=== PATIENT | male | born 1975 | race Caucasian/White ===

== ENCOUNTER → 2016-06-13 | Outpatient (CLI) | payer BC, OTHER ==
[~2016-06-13] MED LIST: CIAL5TAB PO; DARV100T; DARV65CA; FLEX10TA2 PO; IBUP80TA PO; LYRI300C OR; NABU750T; NEXI20CA PO; SILD1TAB8 PO; SOMA350T; SOMA350T OR; SOMA350T PO; TPS CREAM TOP; TRAM50TA2 OR; XANA0.5T OR; ZANA4CAP OR
--- NOTE | 2016-06-14 02:30 | REP ---
Clinical: Epigastric pain. Technique: Supine views of the abdomen and pelvis. Findings: Bowel gas pattern is nonspecific and without evidence for obstruction or perforation. No organomegaly. No abnormal calcifications. Phleboliths suggested in the pelvis. Skeletal structures are intact. Impression: Nonspecific abdominal radiograph. Signed by Wally Garsia MD 06/14/2016 02:21 A
== END ==
LOC: M WUC 18:57
PROVIDERS: ATTEND Physician Assistant
DX: I87.8 Other specified disorders of veins (principal)

== ENCOUNTER → 2016-08-02 | Outpatient (CLI) | payer BC, OTHER ==
[~2016-08-02] VITALS: Ht 170.2 cm; Wt 88.5 kg
[~2016-08-02] MED LIST changes: +CYCL10TA PO; +IBUP600T26 PO; +LIDOCAINE 2% INJ 100 MG/5 ML SDV (FOR ANES.) As Ordered ONE; +LYRI300C PO; +NIFE10CA2 PO; +NS 1,000 ML IV SCH; +PROPOFOL 200 MG/20 ML VIAL As Ordered ONE; +TRAM1CAP15 PO; +ZANT1TAB PO; +medical marijuana
--- NOTE | 2016-08-02 13:10 | ROOR ---
Patient Name: Torres Cerrato Procedure Date: 08/02/2016 12:52 PM Date of : 1975 Age: 40 Room: [facility] Gender: Male Note Status: Finalized Procedure: Upper GI endoscopy Indications: For therapy of esophageal reflux Providers: Billy Orellana Jr, MD Referring MD: Sameer Ramirez. Requesting Provider: Medicines: Propofol per Anesthesia Complications: No immediate complications. Procedure: Pre-Anesthesia Assessment: - Prior to the procedure, a History and Physical was performed, and patient medications and allergies were reviewed. The patient is competent. The risks and benefits of the procedure and the sedation options and risks were discussed with the patient. All questions were answered and informed consent was obtained. Patient identification and proposed procedure were verified by the physician and the nurse in the pre-procedure area and in the procedure room. Mental Status Examination: alert and oriented. Airway Examination: normal oropharyngeal airway and neck mobility. Respiratory Examination: clear to auscultation. CV Examination: normal. ASA Grade Assessment: II - A patient with mild systemic disease. After reviewing the risks and benefits, the patient was deemed in satisfactory condition to undergo the procedure. The anesthesia plan was to use moderate sedation / analgesia (conscious sedation). Immediately prior to administration of medications, the patient was re-assessed for adequacy to receive sedatives. The heart rate, respiratory rate, oxygen saturations, blood pressure, adequacy of pulmonary ventilation, and response to care were monitored throughout the procedure. The physical status of the patient was re-assessed after the procedure. The Endoscope was introduced through the mouth, and advanced to the second part of duodenum. The upper GI endoscopy was accomplished without difficulty. The patient tolerated the procedure well. Findings: The upper third of the esophagus, middle third of the esophagus and lower third of the esophagus were normal. Non-severe esophagitis was found at the gastroesophageal junction. The cardia, gastric fundus and gastric body were normal. Patchy moderate inflammation characterized by congestion (edema), erosions, erythema, friability and granularity was found in the gastric antrum and in the prepyloric region of the stomach. Biopsies were taken with a cold forceps for histology. The first portion of the duodenum and second portion of the duodenum were normal. Patchy mildly erythematous mucosa was found in the duodenal bulb. Impression: - Normal upper third of esophagus, middle third of esophagus and lower third of esophagus. - Non-severe reflux esophagitis. - Normal cardia, gastric fundus and gastric body. - Gastritis. Biopsied. - Normal first portion of the duodenum and second portion of the duodenum. - Erythematous duodenopathy. Recommendation: - Discharge patient to home (ambulatory). - Return to my office in 2 weeks. Billy Orellana MD Billy Orellana Jr, MD 08/02/2016 1:10:17 PM This report has been signed electronically. Number of Addenda: 0 Note Initiated On: 08/02/2016 12:52 PM Estimated Blood Loss: Estimated blood loss: none.
[2016-08-02 13:45] VITALS: BP 143/91
== END | disposition home or self-care (01) ==
LOC: M OPP 11:51
PROVIDERS: ATTEND Surgery
DX: K21.9 Gastro-esophageal reflux disease without esophagitis (principal); K29.70 Gastritis, unspecified, without bleeding; K31.89 Other diseases of stomach and duodenum; R10.13 Epigastric pain; I10 Essential (primary) hypertension; D56.1 Beta thalassemia; I73.00 Raynaud's syndrome without gangrene; M19.90 Unspecified osteoarthritis, unspecified site; F41.9 Anxiety disorder, unspecified; G62.9 Polyneuropathy, unspecified; R06.83 Snoring; F17.210 Nicotine dependence, cigarettes, uncomplicated; Z88.2 Allergy status to sulfonamides; Z88.8 Allergy status to other drugs, medicaments and biological substances

== ENCOUNTER → 2016-11-16 | Outpatient (CLI) | payer BC, OTHER ==
[~2016-11-16] MED LIST changes: +IBUP-1022 PO; -IBUP600T26 PO; -LIDOCAINE 2% INJ 100 MG/5 ML SDV (FOR ANES.) As Ordered ONE; -NS 1,000 ML IV SCH; -PROPOFOL 200 MG/20 ML VIAL As Ordered ONE
--- NOTE | 2016-12-14 01:00 | ECWPNPC ---
PATIENT NAME: NEERAJ PARKER : 1975 GENDER: MALE VISIT DATE: 11/16/2016 DISCHARGE DATE: 11/16/16 1217 VISIT LOCKED DATE TIME: PHYSICIAN: BART CRAMER RESOURCE: BART CRAMER HISTORY OF PRESENT ILLNESS HISTORY OF PRESENT ILLNESS: PAIN THE PATIENT DESCRIBES THE PAIN... FALL RISK SCREENING: SCREENING :NO FALLS IN THE PAST YEAR TODAY'S VISIT: NOTES: RATES PAIN TODAY 7/10. IS HAVING NUMBNESS OVER BOTH HANDS AND FEELS IF STRENGTH IS NOT THERE. HAS HAD REPEAT SURGERY TO LEFT CT, WAS OFFERED SURG TO LEFT ULNA BUT THIS IS ON HOLD. MEDICAL MARIJUANA WAS HELPFUL BUT NOT ALLOWED THROUGH WORK. . CURRENT MEDICATIONS TAKING CYCLOBENZAPRINE HCL 10 MG TABLET 1 TABLET ORALLY THREE TIMES A DAY TAKING NIFEDIPINE 10 MG CAPSULE 1 CAPSULE ORALLY BID TAKING LYRICA 300 MG CAPSULE 1 CAPSULE ORALLY Q 8 HRS MDD=3 TAKING IBUPROFEN 800 MG TABLET 1 TABLET ORALLY THREE TIMES A DAY TAKING TRAMADOL HCL 50 MG TABLET DIRECTED ORALLY 1-2TABS Q 4 HRS PRN PAIN MDD=5 NOT-TAKING SOMA 350 MG TABLET 1 TABLET ORALLY BID NOT-TAKING PREDNISONE 10 MG TABLET 1 TABLET ORALLY TAKE 5 TABX 5 DAY, 4 TAB X 5 DAY, 3 TABX 5 DAY, 2 TABX 5 DAYS, 1 TAB X 5 DAY MEDICATION LIST REVIEWED AND RECONCILED WITH THE PATIENT PAST MEDICAL HISTORY RAYNOLDS PSORIASIS ALLERGIES SULFA (FOR ALLERGY USE ONLY): DYSPNEA: ALLERGY REVIEW OF SYSTEMS FOLLOW-UP ROS: GI/ HAD ENDOSCOPY - FOUND GASTRITIS AND INFLAMMATORY BOWEL. . PULMONOLOGY: SHORTNESS OF BREATH AFTER EATING. . REVIEWED BY: PROVIDER: BART CRAMER DENTAL PROFESSIONAL . CONSTITUTIONAL: ANY CHANGE IN YOUR MEDICAL CONDITION? NO . CHILLS NO . FEVER NO . INFECTION: DO YOU HAVE NEW INFECTIONS? NO . DO YOU HAVE HISTORY OF MRSA? NO . MUSCULOSKELETAL: ANY NEW PATTERNS OF PAIN OR NUMBNESS? NO . GASTROENTEROLOGY: ANY NEW CHANGE IN BOWEL CONTROL? NO . GENITOURINARY: ANY NEW CHANGE IN BLADDER CONTROL? NO . IS THERE A CHANCE YOU COULD BE ? NO . HEMATOLOGY/LYMPH: DO YOU TAKE ANY BLOOD THINNERS? (FOR EXAMPLE- COUMADIN, PLAVIX, AGGRENOX, PLATEL, PRADAXA, OR XARELTO) NO . WHEN WAS YOUR LAST DOSE? DATE: TIME: . NEUROLOGY: HAVE YOU FALLEN IN THE PAST 6 MONTHS? NO . ANY NEW EXTREMITY NUMBNESS OR WEAKNESS? NO . CARDIOLOGY: DO YOU HAVE A PACEMAKER OR DEFIBRILLATOR? NO . RESPIRATORY: HAVE YOU BEEN SICK IN THE PAST WEEK? NO . FEVER NO . FLU LIKE SYMPTOMS? NO . COUGH NO . INTEGUMENTARY: DO YOU HAVE ANY RASHES OR OPEN SORES? NO . ALLERGIC/IMMUNO: ARE YOU ALLERGIC TO SHELLFISH OR IV DYE? NO . ANY NEW ALLERGIES? NO . PSYCHIATRIC: DO YOU HAVE THOUGHTS OF HURTING YOURSELF OR SOMEONE ELSE? NO . ARE YOU ABUSED, NEGLECTED, OR IN AN UNSAFE ENVIRONMENT? NO . ENDOCRINOLOGY: ARE YOU DIABETIC? NO . OTHER: DO YOU NEED ANY PRESCRIPTIONS? YES . IF YES, PLEASE LIST: ____ . ANY NEW PROBLEMS WITH YOUR MEDICATIONS? NO . WHEN DID YOU LAST EAT? ____ . WHEN DID YOU LAST DRINK? ____ . WHAT DID YOU LAST DRINK? ____ . NAME OF PERSON DRIVING YOU HOME? ____ . DO YOU HAVE ANY OTHER QUESTIONS OR CONCERNS NO . VITAL SIGNS WT 191 LBS, HT 67 IN, BMI 29.91 INDEX, BP 116/75 MM HG, HR 74 /MIN, RR 16 /MIN, TEMP 97.9 F, OXYGEN SAT % 96%, NA INITIALS SC 11:50, REVIEWED BY: NL. EXAMINATION GENERAL EXAMINATION: PSYCHALERT , ORIENTED X 3 , APPROPRIATE MOOD AND AFFECT . HEENT:NORMOCEPHALIC, NO LYMPHADENOPATHY, NO THRYOMEGLY. LUNGS:CLEAR TO AUSCULTATION BILATERALLY. HEART:HEART RATE REGULAR, NO S3, S4, MURMUR OR RUB. MUSCULOSKELETAL:MUSCLE STRENGTH TESTING 4+/5 BILATERAL UPPER EXTREMITIES DISTALLY. GOOD SHOULDER SHRUG. HYPERSENSATIVITY TO LIGHT TOUCH WITH PALPATION OVER INCISIONS AT ULNAR REGION AND OVER THE PALMAR SURFACE OF THE WRIST. MARKED DECREASE IN SENSATION TO ALL FINGERS, BILATERALLY. SKIN:SCALY ERYTHEMATOUS PATCHES OVER UPPER ARMS AND ON LEGS. 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 TREATMENT NEURALGIA OF UPPER EXTREMITY REFILL NIFEDIPINE CAPSULE, 10 MG, 1 CAPSULE, ORALLY, BID, 30 DAY(S), 60 CAPSULE, REFILLS 3 REFILL LYRICA CAPSULE, 300 MG, 1 CAPSULE, ORALLY, Q 8 HRS MDD=3, 30 DAY(S), 90, REFILLS 5 REFILL SOMA TABLET, 350 MG, 1 TABLET, ORALLY, BID, 30 DAY(S), 60 TABLET, REFILLS 5 REFILL TRAMADOL HCL TABLET, 50 MG, DIRECTED, ORALLY, 1-2TABS Q 4 HRS PRN PAIN MDD=5, 30 DAY(S), 150, REFILLS 2 REFILL IBUPROFEN TABLET, 800 MG, 1 TABLET, ORALLY, THREE TIMES A DAY, 30 DAY(S), 90, REFILLS 5 START BUSPIRONE HCL TABLET, 5 MG, 1 TABLET, ORALLY, THREE TIMES A DAY, 30 DAY(S), 90 TABLET, REFILLS 1 NOTES: REVIEWED MEDICATION SAFETY INCLUDING NOT DRIVING IMMEDIATELY AFTER TAKING MEDS, KEEPING THEM SECURED AND ONLY TAKING THEM PRESCRIBED. PT AGREED TO PLAN. PROCEDURE CODES FA211 ESTABILISHED PATIENT [facility] CHARGE DISPOSITION & COMMUNICATION FOLLOW UP 2-3 MONTHS (REASON: NEURALGIA) ELECTRONICALLY SIGNED BY SANDRA SIMMONS ON 12/13/2016 AT 08:20 AM EDT DISCLAIMER : THIS IS A VISIT SUMMARY EXTRACTED FROM THE [employer] CHART. IT IS NOT A COPY OF THE [employer] PROGRESS NOTE. ALEXA
== END ==
LOC: M PAIN 11:00
PROVIDERS: ATTEND Nurse Practitioner Family
DX: G56.20 Lesion of ulnar nerve, unspecified upper limb (principal); I73.00 Raynaud's syndrome without gangrene; L40.50 Arthropathic psoriasis, unspecified; Z88.2 Allergy status to sulfonamides; Z79.891 Long term (current) use of opiate analgesic; Z79.1 Long term (current) use of non-steroidal anti-inflammatories (NSAID); Z79.899 Other long term (current) drug therapy

== ENCOUNTER → 2017-11-14 | Outpatient (CLI) | payer BC, OTHER | LOC: M WUC 11:12 | DX: R06.02 Shortness of breath (principal) | CPT/HCPCS: 71046 ==

== ENCOUNTER → 2018-02-12 | Outpatient (CLI) | payer BC, OTHER | LOC: M WUC 10:42 | DX: M51.36 Other intervertebral disc degeneration, lumbar region (principal) | CPT/HCPCS: 72110 ==

== ENCOUNTER → 2018-02-14 | Outpatient (CLI) | payer BC, OTHER | LOC: M PAIN 14:15 | DX: M79.2 Neuralgia and neuritis, unspecified (principal); L40.9 Psoriasis, unspecified; I73.00 Raynaud's syndrome without gangrene; Z87.891 Personal history of nicotine dependence; Z79.52 Long term (current) use of systemic steroids; Z79.891 Long term (current) use of opiate analgesic; Z79.899 Other long term (current) drug therapy; Z88.2 Allergy status to sulfonamides | CPT/HCPCS: G0463 ==

== ENCOUNTER → 2018-04-16 | Outpatient (CLI) | payer BC, OTHER ==
[~2018-04-16] MED LIST changes: +ZANT150T15 PO; -ZANT1TAB PO
--- NOTE | 2018-05-08 02:25 | ECWPNPC ---
PATIENT NAME: NEERAJ PARKER : 1975 GENDER: MALE VISIT DATE: 04/16/2018 DISCHARGE DATE: 04/16/18 1456 VISIT LOCKED DATE TIME: PHYSICIAN: ANT MARTINEZ RESOURCE: ANT MARTINEZ REASON FOR APPOINTMENT 1. ARM PAIN REF BY SW-30 MINUTES HISTORY OF PRESENT ILLNESS HISTORY OF PRESENT ILLNESS: HERE FOR F/U OF CHRONIC BILAT. ARM PAIN AND PARATHESIAS.CURRENTLY USING LYRICA 200MG BID AND TRAMADOL 50MG PRN.RATING PAIN VAS 7/10.DESCRIBES PAIN SHARP AND SHOOTING.SUFFERS FROM CHRONIC BILA ARM PAIN SINCE BILATERAL ULNAR NERVE TRANSPOSITON IN 2002. PAIN THE PATIENT DESCRIBES THE PAIN... FALL RISK SCREENING: SCREENING :NO FALLS IN THE PAST YEAR CURRENT MEDICATIONS TAKING ADDERALL 10 MG TABLET 1 TABLET IN THE MORNING ORALLY BID TAKING ADDERALL XR 5 MG CAPSULE EXTENDED RELEASE 24 HOUR 1 CAPSULE IN THE MORNING ORALLY ONCE DAILY, 5PM TAKING PROTONIX 1 TAB ORAL 40MG, NOTES: HASN'T TAKEN IN A WHILE TAKING TRAMADOL HCL 50 MG TABLET DIRECTED ORALLY 1-2TABS Q 4 HRS PRN PAIN MDD=4 TAKING LYRICA 200 MG CAPSULE 1 CAPSULE ORALLY BID FOR NEUROPATHIC PAIN MDD=2 NOT-TAKING CYCLOBENZAPRINE HCL 10 MG TABLET 1 TABLET ORALLY THREE TIMES A DAY NOT-TAKING NIFEDIPINE 10 MG CAPSULE 1 CAPSULE ORALLY BID NOT-TAKING SOMA 350 MG TABLET 1 TABLET ORALLY BID NOT-TAKING IBUPROFEN 800 MG TABLET 1 TABLET ORALLY THREE TIMES A DAY NOT-TAKING BUSPIRONE HCL 5 MG TABLET 1 TABLET ORALLY THREE TIMES A DAY NOT-TAKING PREDNISONE 10 MG TABLET 1 TABLET ORALLY TAKE 5 TABX 5 DAY, 4 TAB X 5 DAY, 3 TABX 5 DAY, 2 TABX 5 DAYS, 1 TAB X 5 DAY NOT-TAKING PREDNISONE TAPER 1 TAB ORAL NOT-TAKING AUGMENTIN - TABLET 1 TABLET ORALLY EVERY 12 HRS MEDICATION LIST REVIEWED AND RECONCILED WITH THE PATIENT PAST MEDICAL HISTORY RAYNOLDS PSORIASIS NEUROPATHY - BILATERAL ARMS ALLERGIES SULFA (FOR ALLERGY USE ONLY): DYSPNEA: ALLERGY SURGICAL HISTORY LEFT CARPEL TUNNEL 08/2015 LEFT AND RIGHT ULNAR NERVE SURGEY 2002 RIGHT CARPEL TUNNEL 2002 RIGHT CARPEL TUNNEL - OPEN 12/2017 LEFT CARPAL SURGERY - OPEN 11/2017 FAMILY HISTORY FATHER: ALIVE MOTHER: ALIVE 1 BROTHER(S) , 1 SISTER(S) - HEALTHY. 2 SON(S) , 1 DAUGHTER(S) . BOTH SONS HAVE JOHN PICK DISEASE, TYPE B. SOCIAL HISTORY GENERAL: TOBACCO USE ARE YOU A:FORMER SMOKER HOW LONG HAS IT BEEN SINCE YOU LAST SMOKED?6-12 MONTHS RECREATIONAL DRUG USE DRUG USE?NO CAFFEINE CAFFEINE USE?NO LANGUAGE LANGUAGES SPOKEN:SALV[place]ORE[place] LEARNING BARRIERS / SPECIAL NEEDS BARRIERS TO LEARNING?NO EMOTIONAL BARRIERS?NO LEARNING CAPABILITIES PRESENT?YES CHANGE FROM LAST VISIT?NO COGNITIVELY IMPAIRED?NO VISION IMPAIRED?NO LEARNING PREFERENCES?NO SPECIAL DEVICES?NO READINESS TO LEARN?YES HEARING IMPAIRED?NO DIET: REGULAR. EXERCISE: NO REGULAR EXERCISE. NEW PATIENT PAIN DIARY FROM 0-10, WHAT LEVEL IS YOUR PAIN TODAY?0 TODAY'S VISITNOTES PAIN CLINIC PFS, CLERGY, PUBLIC HEALTH REFERRALS PFS REFERRAL NEEDED?NO CLERGY REFERRAL NEEDED?NO PUBLIC HEALTH REFERRAL NEEDED?NO WAS THE PROVIDER NOTIFIED OF ANY PERTINENT INFO?YES HAS THE PATIENT BEEN EDUCATED REGARDING HIS/HER PLAN OF CARE?YES HAS THE PATIENT BEEN EDUCATED REGARDING PAIN, THE RISK FOR PAIN, THE IMPORTANCE OF EFFECTIVE PAIN MANAGEMENT, AND THE PAIN ASSESSMENT PROCESS?YES ADVANCE DIRECTIVE ADVANCE DIRECTIVE DISCUSSED WITH PATIENT:YES PT STATES HCP JITENDRA PARKER [phone] REVIEWED WITH PT 02/14/18 1440 LASREVIEWED WITH PATIENT 04/16/18 1427 JS. HOSPITALIZATION/MAJOR DIAGNOSTIC PROCEDURE NO HOSPITALIZATION HISTORY. REVIEW OF SYSTEMS REVIEWED BY: PROVIDER: ANT CARRERA . CONSTITUTIONAL: ANY CHANGE IN YOUR MEDICAL CONDITION? NO . CHILLS NO . FEVER NO . INFECTION: DO YOU HAVE NEW INFECTIONS? NO . DO YOU HAVE HISTORY OF MRSA? NO . MUSCULOSKELETAL: ANY NEW PATTERNS OF PAIN OR NUMBNESS? STATES PAIN 7/10 TO BILATERAL ARMS AT THIS TIME, RELIEVED SOME BY LYRICA . GASTROENTEROLOGY: ANY NEW CHANGE IN BOWEL CONTROL? NO . GENITOURINARY: ANY NEW CHANGE IN BLADDER CONTROL? NO . IS THERE A CHANCE YOU COULD BE ? NO . HEMATOLOGY/LYMPH: DO YOU TAKE ANY BLOOD THINNERS? (FOR EXAMPLE- COUMADIN, PLAVIX, AGGRENOX, PLATEL, PRADAXA, OR XARELTO) NO . WHEN WAS YOUR LAST DOSE? DATE: TIME: . NEUROLOGY: HAVE YOU FALLEN IN THE PAST 6 MONTHS? NO . ANY NEW EXTREMITY NUMBNESS OR WEAKNESS? NO . CARDIOLOGY: DO YOU HAVE A PACEMAKER OR DEFIBRILLATOR? NO . RESPIRATORY: HAVE YOU BEEN SICK IN THE PAST WEEK? NO . FEVER NO . FLU LIKE SYMPTOMS? NO . COUGH NO . INTEGUMENTARY: DO YOU HAVE ANY RASHES OR OPEN SORES? NO . ALLERGIC/IMMUNO: ARE YOU ALLERGIC TO SHELLFISH OR IV DYE? NO . ANY NEW ALLERGIES? NO . PSYCHIATRIC: DO YOU HAVE THOUGHTS OF HURTING YOURSELF OR SOMEONE ELSE? NO . ARE YOU ABUSED, NEGLECTED, OR IN AN UNSAFE ENVIRONMENT? NO . ENDOCRINOLOGY: ARE YOU DIABETIC? NO . OTHER: DO YOU NEED ANY PRESCRIPTIONS? YES . IF YES, PLEASE LIST: ____WOULD LIKE INCREASED LYRICA DOSE, BACK TO 300 MG 2-3X/DAY . ANY NEW PROBLEMS WITH YOUR MEDICATIONS? NO . WHEN DID YOU LAST EAT? ____ . WHEN DID YOU LAST DRINK? ____ . WHAT DID YOU LAST DRINK? ____ . NAME OF PERSON DRIVING YOU HOME? ____ . DO YOU HAVE ANY OTHER QUESTIONS OR CONCERNS NO . VITAL SIGNS WT 191.2 LBS, HT 67 IN, BMI 29.94 INDEX, BP 140/81 MM HG, HR 76 /MIN, RR 18 /MIN, TEMP 96.2 F, OXYGEN SAT % 99%, SAFE IN ENV? (Y/N) YES, NA INITIALS AW 1408, REVIEWED BY: BRIE. EXAMINATION GENERAL EXAMINATION: GENERAL APPEARANCE:AWAKE,ALERT ,PLEAASANT . PSYCHAFFECT NORMAL . LUNGS:LUNG LEYVA ARE CLEAR TO AUSCULTATION BILATERALLY. GOOD MOVEMENT OF AIR . HEART:S1, S2 IN A REGULAR RATE AND RHYTHM. NO SIGNIFICANT MURMURS, RUBS OR GALLOPS NOTED . ASSESSMENTS PAIN IN RIGHT ARM - M79.601 (PRIMARY) PAIN OF LEFT ARM - M79.602 OTHER CHRONIC PAIN - G89.29 NEUROPATHY - G62.9 TREATMENT PAIN IN RIGHT ARM CONTINUE TRAMADOL HCL TABLET, 50 MG, DIRECTED, ORALLY, 1-2TABS Q 4 HRS PRN PAIN MDD=4, 30 DAY(S), 120, REFILLS 2 INCREASE LYRICA CAPSULE, 300 MG, 1 CAPSULE, ORALLY, BID FOR NEUROPATHIC PAIN MDD=2, 30 DAY(S), 60, REFILLS 2 DISPOSITION & COMMUNICATION FOLLOW UP 3 MONTHS ELECTRONICALLY SIGNED BY DEBI ANTONIO ON 05/07/2018 AT 09:40 AM EST DISCLAIMER : THIS IS A VISIT SUMMARY EXTRACTED FROM THE [employer] CHART. IT IS NOT A COPY OF THE [employer] PROGRESS NOTE. ALEXA
== END ==
LOC: M PAIN 14:00
PROVIDERS: ATTEND Nurse Practitioner Family
DX: M79.601 Pain in right arm (principal); M79.602 Pain in left arm; G89.29 Other chronic pain; G62.9 Polyneuropathy, unspecified; I73.00 Raynaud's syndrome without gangrene; L40.9 Psoriasis, unspecified; Z79.899 Other long term (current) drug therapy; Z88.2 Allergy status to sulfonamides; Z87.891 Personal history of nicotine dependence

== ENCOUNTER → 2018-07-06 | Outpatient (CLI) | payer BC, OTHER ==
--- NOTE | 2018-07-06 14:22 | REP ---
Right hand four views: There is a minimally displaced fracture at the midshaft of the ring finger metacarpal. There is a slight dorsal angulation at the fracture site. There is no dislocation. Mineralization and joint spaces otherwise are unremarkable. Electronically Signed by Elfego Vasquez MD 07/06/2018 02:14 P
== END ==
LOC: M WUC 13:48
PROVIDERS: ATTEND Physician Assistant
DX: S60.221A Contusion of right hand, initial encounter (principal); W18.30XA Fall on same level, unspecified, initial encounter; Y92.009 Unspecified place in unspecified non-institutional (private) residence as the place of occurrence of the external cause

== ENCOUNTER → 2018-07-15 | Outpatient (CLI) | payer BC, OTHER ==
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
== END ==
LOC: M PAIN 13:30
PROVIDERS: ATTEND Nurse Practitioner Family
DX: M79.601 Pain in right arm (principal); G62.9 Polyneuropathy, unspecified; I73.00 Raynaud's syndrome without gangrene; L40.9 Psoriasis, unspecified; F17.210 Nicotine dependence, cigarettes, uncomplicated; Z79.899 Other long term (current) drug therapy; Z88.2 Allergy status to sulfonamides

== ENCOUNTER → 2018-08-22 | Outpatient (REF) | payer OTHER | LOC: M LAB REF 13:58 | PROVIDERS: ATTEND Physician Assistant | DX: J02.9 Acute pharyngitis, unspecified (principal) ==

== ENCOUNTER 2018-08-31 14:23 | Emergency (ER) | payer BC, OTHER ==
[~2018-08-31] VITALS: Ht 170.2 cm; Wt 84.1 kg
[2018-08-31] MEDS ORDERED: KETOROLAC 60 MG/2 ML VIAL (J1885) IM ONE (16:15)
[2018-08-31 16:36] LABS: HEMOGLOBIN 13.6 g/dl (13.5-17.5); RED BLOOD COUNT 6.58 10^6/uL (4.30-6.10); WHITE BLOOD COUNT 16.9 10^3/uL (4.0-10.0)
[2018-08-31 16:37] LABS: BASO % 0.2 % (0.0-1.0); EOS # 0.1 10^3/uL (0.0-0.50); EOS % 0.6 % (0.0-3.0); HEMATOCRIT 43.2 % (42.0-52.0); LYMPH # 1.9 10^3/uL (1.5-4.5); LYMPH % 11.1 % (24.0-44.0); MEAN CORPUSCULAR HEMOGLOBIN 20.7 pg (27.0-33.0); MEAN CORPUSCULAR HGB CONC 31.5 g/dl (32.0-36.5); MEAN CORPUSCULAR VOLUME 65.7 fl (80.0-96.0); MONO # 1.2 10^3/uL (0.0-0.8); MONO % 7.3 % (0.0-5.0); NEUTROPHILS # 13.6 10^3/uL (1.8-7.7); NEUTROPHILS % 80.4 % (36.0-66.0); PLATELET COUNT, AUTOMATED 227 10^3/uL (150-450)
[2018-08-31 16:53] LABS: MONO REFLEX EBV COMP NEGATIVE (NEGATIVE)
[2018-08-31 17:56] VITALS: BP 146/80
--- NOTE | 2018-09-01 09:07 | REP ---
CHEST PORTABLE: REASON: Chest tightness. FINDINGS: The technique utilized in obtaining the radiograph has magnified the cardiac silhouette and accentuated the interstitial markings. The superior mediastinal structures are midline. The cardiac silhouette is unremarkable in size, shape, and position. The diaphragmatic surfaces of the lungs are regular, and the costophrenic angles are clear. The pulmonary lamb are clear. The imaged osseous structures are intact. The exam is limited by PA view only. IMPRESSION: There is no acute cardiopulmonary disease. Electronically Signed by Brandyn Mason DO 09/01/2018 02:05 P
[2018-09-03 00:06] LABS: EBV VIRAL CAPSID AG IgM <36.0 U/mL (0.0-35.9)
== END 2018-08-31 18:01 | disposition home or self-care (01) ==
LOC: M ED 14:23
DX: J02.9 Acute pharyngitis, unspecified (principal); J06.9 Acute upper respiratory infection, unspecified; Z79.899 Other long term (current) drug therapy; Z88.2 Allergy status to sulfonamides; Z88.1 Allergy status to other antibiotic agents
CPT/HCPCS: 71045; 85025; 86308; 86663; 86664; 86665; 87880; 96372; 99284; J1885

== ENCOUNTER → 2018-09-22 | Outpatient (REF) | payer BC, OTHER | LOC: M LAB REF 16:45 | PROVIDERS: ATTEND Physician Assistant | DX: J02.9 Acute pharyngitis, unspecified (principal) ==

== ENCOUNTER → 2019-01-01 | Outpatient (CLI) | payer BC, OTHER ==
[~2019-01-01] MED LIST changes: +METHACHOLINE KIT (J7674) INH ONE
--- NOTE | 2019-01-01 15:22 | PFTRPT ---
Site: [facility], [address] [place], [address] ID: [id number] Name: NEERAJ PARKER Visit Date: 01/01/2019 Second ID: [id number] Referring Doctor: Gwendolyn Ferro Reviewing Doctor: Holland Danielle MD Glass Selector: Fadi DOE RRT Age: 43 : 1975 Sex: Male Race: Height: 67.00 Inches Weight: 189.00 Lbs BSA: 1.97 Order IDs: [id number] Requested Test(s): <RESP-PFT.METH CHAL> Diagnosis: R06.02 of albuterol for postbronchodilator. Review Status: Not Reviewed Pre-Bronch Post-Bronch Pred Actual %Pred Actual %Chng SPIROMETRY FVC (L) 4.75 4.35 91 4.25 -2 FEV1 (L) 3.78 3.66 96 3.58 -2 FEV1/FVC (%) 79 84 106 84 FEF 25% (L/sec) 7.74 9.22 119 7.99 -13 FEF 50% (L/sec) 5.30 4.86 91 4.86 FEF 75% (L/sec) 1.80 1.65 91 1.51 -8 FEF 25-75% (L/sec) 3.58 4.00 111 3.83 -4 FEF Max (L/sec) 9.45 9.50 100 8.12 -14 FIVC (L) 4.39 4.29 -2 FIF 50% (L/sec) 5.18 6.68 128 7.24 8 FIF Max (L/sec) 7.24 7.30 Expiratory Time (sec) 6.63 6.52 -1 Back Extrap Vol (L) 0.13 0.12 -8 Time To FEFmax (sec) 0.085 0.104 22
== END ==
LOC: M CARPUL 14:35
PROVIDERS: ATTEND Nurse Practitioner Adult Health
DX: R06.02 Shortness of breath (principal)
CPT/HCPCS: 94070; J7674

== ENCOUNTER → 2019-02-18 | Outpatient (CLI) | payer BC, OTHER ==
[~2019-02-18] MED LIST changes: -METHACHOLINE KIT (J7674) INH ONE
== END ==
LOC: M PAIN 08:45
PROVIDERS: ATTEND Nurse Practitioner Family
DX: M79.601 Pain in right arm (principal); G62.9 Polyneuropathy, unspecified; G89.29 Other chronic pain; F17.210 Nicotine dependence, cigarettes, uncomplicated; Z88.2 Allergy status to sulfonamides; Z79.899 Other long term (current) drug therapy

== ENCOUNTER → 2019-09-14 | Outpatient (CLI) | payer BC, OTHER ==
[~2019-09-14] MED LIST changes: +CYCL-707 PO; -CYCL10TA PO
== END ==
LOC: M LABSMTC 13:20
PROVIDERS: ATTEND Family Medicine
DX: Z03.818 Encounter for observation for suspected exposure to other biological agents ruled out (principal); Z11.59 Encounter for screening for other viral diseases

== ENCOUNTER → 2020-07-07 | Outpatient (CLI) | payer BC, OTHER ==
[~2020-07-07] MED LIST changes: +ADDE10CA3 PO; +PANT20TA6 PO; +XANA0.5T PO
== END ==
LOC: M LABSMTC 09:43
PROVIDERS: ATTEND Anesthesiology
DX: Z01.812 Encounter for preprocedural laboratory examination (principal); Z20.822 Contact with and (suspected) exposure to COVID-19

== ENCOUNTER → 2020-12-05 | Outpatient (CLI) | payer BC, OTHER ==
--- NOTE | 2020-12-05 17:26 | REP ---
INDICATION: PAIN. COMPARISON: None. TECHNIQUE: Five views FINDINGS: The joint spaces are symmetric and relatively well maintained. There is no evidence of acute fracture or destructive osseous lesion there is an old healed fracture of the 4th metacarpal. The lateral views nondiagnostic and is grossly under penetrated. IMPRESSION: Negative hand for acute abnormality. <Electronically signed by Brandyn Mason > 12/05/20 [id number]
--- NOTE | 2020-12-05 17:27 | REP ---
INDICATION: PAIN. COMPARISON: None. TECHNIQUE: Three views of the right shoulder were performed. FINDINGS: The acromioclavicular and glenohumeral relationships are within normal limits. There is no acute fracture or destructive osseous lesion. IMPRESSION: Within normal limits <Electronically signed by Brandyn Mason > 12/05/20 [id number]
== END ==
LOC: M WUC 16:16
PROVIDERS: ATTEND Physician Assistant Medical
DX: M79.641 Pain in right hand (principal); M25.511 Pain in right shoulder

== ENCOUNTER → 2021-02-07 | Outpatient (REF) | payer BC, OTHER | LOC: M LAB REF 17:05 | PROVIDERS: ATTEND Physician Assistant Medical | DX: Z01.84 Encounter for antibody response examination (principal) ==

== ENCOUNTER → 2021-06-16 | Outpatient (CLI) | payer BC, OTHER | LOC: M WUC 11:08 | PROVIDERS: ATTEND Physician Assistant Medical | DX: R05.9 Cough, unspecified (principal); J02.9 Acute pharyngitis, unspecified; R91.8 Other nonspecific abnormal finding of lung field ==

== ENCOUNTER 2021-08-04 04:05 | Emergency (ER) | payer BC, OTHER ==
[~2021-08-04] VITALS: Ht 170.2 cm; Wt 89.2 kg
[2021-08-04 04:37] LABS: BASO # 0.1 10^3/uL (0.0-0.2); BASO % 0.2 % (0.0-1.0); EOS # 0.3 10^3/uL (0.0-0.5); EOS % 1.2 % (0.0-3.0); HEMATOCRIT 41.5 % (42.0-52.0); HEMOGLOBIN 13.6 g/dl (13.5-17.5); LYMPH # 2.1 10^3/uL (1.5-5.0); LYMPH % 8.9 % (24.0-44.0); MEAN CORPUSCULAR HEMOGLOBIN 21.1 pg (27.0-33.0); MEAN CORPUSCULAR HGB CONC 32.8 g/dl (32.0-36.5); MEAN CORPUSCULAR VOLUME 64.2 fl (80.0-96.0); MONO % 6.7 % (2.0-8.0); NEUTROPHILS # 19.7 10^3/uL (1.5-8.5); NEUTROPHILS % 82.6 % (36.0-66.0); PLATELET COUNT, AUTOMATED 299 10^3/uL (150-450); RED BLOOD COUNT 6.46 10^6/uL (4.30-6.10); WHITE BLOOD COUNT 23.9 10^3/uL (4.0-10.0)
[2021-08-04 04:55] LABS: BLOOD UREA NITROGEN 10 MG/DL (7-18); CALCIUM LEVEL 8.9 MG/DL (8.5-10.1); CARBON DIOXIDE LEVEL 23 MEQ/L (21-32); CHLORIDE LEVEL 108 MEQ/L (98-107); CK-MB VALUE MASS 5.8 NG/ML (<3.6); CREATININE FOR GFR 1.02 MG/DL (0.70-1.30); GLOMERULAR FILTRATION RATE > 60.0 (>60); GLUCOSE, FASTING 100 MG/DL (70-100); MB/CK RELATIVE INDEX 1.8 (< OR =4); POTASSIUM SERUM 3.9 MEQ/L (3.5-5.1); SODIUM LEVEL 142 MEQ/L (136-145)
[2021-08-04 04:59] LABS: MONO # 1.6 10^3/uL (0.0-0.8)
[2021-08-04] MEDS ORDERED: ONDANSETRON 4MG/2ML VIAL IV ONE (05:00)
[2021-08-04] MEDS: MORPHINE 4 MG/ML 1ML VIAL/SYRINGE (J2270) IV PRN ×2 (05:07→05:47)
[2021-08-04] MEDS ORDERED: ISOVUE-370 76% 100ML VIAL As Ordered ONE (05:08)
[2021-08-04] MEDS ORDERED: LORazepam 2 MG TAB PO PRN (05:15)
[2021-08-04] MEDS ORDERED: THIAMINE 100 MG TAB PO SCH (06:00)
[2021-08-04 06:04] LABS: RSV AMPLIFICATION NEGATIVE (NEGATIVE)
[2021-08-04 06:21] LABS: MB/CK RELATIVE INDEX 1.86 (< OR =4)
[2021-08-04] MEDS ORDERED: HEPARIN SOD (PORCINE) 5000UNITS/ML 1ML VIAL/SYRINGE IV ONE (06:35)
[2021-08-04] MEDS ORDERED: HEPARIN DRIP 25,000 UNITS in IV 1 EA IV SCH (06:35)
[2021-08-04] MEDS: NITROGLYCERIN 0.4 MG SUBL TABLET SL PRN ×2 (07:01→08:05)
[2021-08-04 08:05] VITALS: BP 123/72
[2021-08-04 08:09] VITALS: BP 116/60
[2021-08-04] MEDS ORDERED: MULTIVITAMINS/MINERALS THERAP 1 TAB PO SCH (09:00)
[2021-08-04] MEDS ORDERED: FOLIC ACID 1 MG TAB PO SCH (09:00)
== END 2021-08-04 08:17 | disposition short-term general hospital (02) ==
LOC: M ED 04:05 → EDBD 04:05 → M ED 08:17
DX: I45.6 Pre-excitation syndrome (principal); I10 Essential (primary) hypertension; K21.9 Gastro-esophageal reflux disease without esophagitis; Z79.899 Other long term (current) drug therapy; Z88.1 Allergy status to other antibiotic agents; Z88.2 Allergy status to sulfonamides; Z88.8 Allergy status to other drugs, medicaments and biological substances; Z82.49 Family history of ischemic heart disease and other diseases of the circulatory system
CPT/HCPCS: 71045; 71275; 80048; 82077; 82550; 82553; 84484; 85025; 87631; 93005; 93041; 94760; 96374; 96375; 96376; 99285; J1644; J2270; J2405; Q9967

== ENCOUNTER → 2022-07-09 | Outpatient (REF) | payer OTHER | LOC: M LAB REF 17:06 | PROVIDERS: ATTEND Physician Assistant Medical | DX: J02.9 Acute pharyngitis, unspecified (principal) ==

== ENCOUNTER → 2022-08-13 | Outpatient (CLI) | payer BC, OTHER | LOC: M WUC 13:19 | PROVIDERS: ATTEND Physician Assistant Medical | DX: M54.2 Cervicalgia (principal); M47.812 Spondylosis without myelopathy or radiculopathy, cervical region ==

== ENCOUNTER → 2022-10-15 | Outpatient (REF) | payer BC, OTHER | LOC: M LAB REF 17:50 | PROVIDERS: ATTEND Physician Assistant Medical | DX: R53.83 Other fatigue (principal); M79.10 Myalgia, unspecified site; M79.646 Pain in unspecified finger(s) ==

== ENCOUNTER 2023-01-20 16:20 | Emergency (ER) | payer BC, OTHER ==
[~2023-01-20] VITALS: Ht 170.2 cm; Wt 75.5 kg
[2023-01-20 16:20] VITALS: BP 135/79; TEMP 97.9; O2SAT 97
[2023-01-20] MEDS ORDERED: PRED10TA2 (16:27)
[2023-01-20] MEDS ORDERED: TRAM50TA2 (16:27)
[2023-01-20] MEDS ORDERED: TADA5TAB (16:27)
[2023-01-20] MEDS ORDERED: NORCO, ANEXSIA 5/325MG TABLET (HYDROcodone/ACETAMINOPHEN) PO ONE (17:00)
[2023-01-20] MEDS ORDERED: CEPH500C PO (18:05)
== END 2023-01-20 18:16 | disposition home or self-care (01) ==
LOC: M ED 16:20
DX: S68.621A Partial traumatic transphalangeal amputation of left index finger, initial encounter (principal); F41.9 Anxiety disorder, unspecified; K21.9 Gastro-esophageal reflux disease without esophagitis; J45.909 Unspecified asthma, uncomplicated; F17.200 Nicotine dependence, unspecified, uncomplicated; Z88.1 Allergy status to other antibiotic agents; Z88.2 Allergy status to sulfonamides; Z88.8 Allergy status to other drugs, medicaments and biological substances; Z79.899 Other long term (current) drug therapy; Z79.1 Long term (current) use of non-steroidal anti-inflammatories (NSAID)